=== PATIENT | male | born 1995 | race Caucasian/White ===

== ENCOUNTER 2023-01-21 18:27 | Emergency (ER) | payer SELFPAY ==
[2023-01-21] VITALS (10 sets, daily range): BP systolic 118–168; BP diastolic 78–103; PULSE 70–85; RESP 18; TEMP 36.8; O2SAT 95–100; BMI 37.3
--- NOTE | 2023-01-21 18:55 | XR_ITS ---
The [address] [address] Patient Name: ABBI CULP MRN: [id number] date: 1995 Sex: M Assigned Patient Location: ER Current Patient Location: Accession/Order Number: [id number] Exam Date: 01/21/2023 19:47 Report Date: 01/21/2023 20:31 At the request of: MARIA LUISA CHEW Procedure: XR acute abdomen series EXAM: XR acute abdomen series TECHNIQUE: PA view chest. AP supine and upright views of the abdomen. HISTORY: Abdominal pain, vomiting COMPARISON: None. FINDINGS: The heart and mediastinum are unremarkable. Lung jaime are clear. There is no free intraperitoneal air. There is no bowel obstruction. No abnormal unexpected abdominal calcifications. Osseous structures are intact. XR/XR acute abdomen series IMPRESSION: No acute abdominal pathology. No acute pulmonary consolidation Electronically authenticated by: MATT SMITH Date: 01/21/2023 20:31
--- NOTE | 2023-01-21 18:56 | ED_ITS ---
HPI - Abdominal Pain General Chief Complaint: Abdominal Pain Stated Complaint: vomiting Time Seen by Provider: 01/21/23 18:46 Source: patient Mode of arrival: walk-in Limitations: no limitations History of Present Illness HPI narrative: Patient is a 27-year-old male who presents to the emergency department for the evaluation of multiple episodes of vomiting and an episode of hematemesis today. Patient states for the last 2 days he has had nausea and vomiting associated with upper abdominal pain. 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 He has not had any fevers, upper respiratory symptoms. No medications taken prior to arrival. No sick contacts in the home. Related Data Previous Rx's Medication Instructions Recorded ondansetron 4 mg disintegrating 4 mg PO Q6H PRN nausea and 01/21/23 tablet vomiting #12 tabs pantoprazole 40 mg tablet,delayed 40 mg PO DAILY #7 tabs 01/21/23 release (Protonix) sucralfate 1 gram tablet (Carafate) 1 g PO Q6H PRN abdominal pain #12 01/21/23 tabs Allergies Allergy/AdvReac Type Severity Reaction Status Date / Time No Known Drug Allergies Allergy Verified 01/21/23 18:39 Review of Systems ROS Constitutional Denies: fever or chills Ears, nose, mouth, and throat Denies: throat pain or nasal congestion Cardiovascular Denies: chest pain Respiratory Denies: shortness of breath or cough Gastrointestinal Reports: abdominal pain, nausea and vomiting; Denies: diarrhea Genitourinary Denies: painful urination Musculoskeletal Denies: back pain Integumentary/Breast Denies: rash Neurological Denies: headache PFSH PFSH Social History Smoking status: Former smoker Exam Narrative Exam Narrative: Gen.: Awake, alert, in no distress Head: Normocephalic, atraumatic ENT: Moist mucous membranes Respiratory: No respiratory distress, lungs clear bilaterally Cardio: Regular rate and rhythm Gastrointestinal: Abdomen is soft, nondistended and diffusely tender to palpation across the upper abdomen; well-healed surgical scar to the right upper abdomen Extremities: Moves extremities equally Psych: Normal mood and affect Neuro: No focal neuro deficit Skin: Warm, dry, intact Constitutional Vital Signs, click to edit/add: Last Vital Signs Temp 98.2 F 01/21/23 18:40 Pulse 70 01/21/23 20:24 Resp 18 01/21/23 18:40 BP 133/89 01/21/23 20:21 Pulse Ox 100 01/21/23 20:24 O2 Del Method Room Air 01/21/23 18:40 Course Vital Signs Vital signs: Vital Signs Temperature 98.2 F 01/21/23 18:40 Pulse Rate 85 01/21/23 18:40 Respiratory Rate 18 01/21/23 18:40 Blood Pressure 168/103 H 01/21/23 18:40 Pulse Oximetry 97 01/21/23 18:40 Oxygen Delivery Method Room Air 01/21/23 18:40 Temperature 98.2 F 01/21/23 18:40 Pulse Rate 70 01/21/23 20:24 Respiratory Rate 18 01/21/23 18:40 Blood Pressure 133/89 01/21/23 20:21 Pulse Oximetry 100 01/21/23 20:24 Oxygen Delivery Method Room Air 01/21/23 18:40 MDM - Abdominal Pain MDM Narrative Medical decision making narrative: Patient with normal lab studies, stable hemoglobin, no significant leukocytosis. No evidence of liver, gallbladder or pancreas abnormalities. Abdominal x-rays with no evidence of perforation or obstruction. Patient treated with IV fluids, Zofran, Protonix. He will be treated for gastritis with Zofran and Protonix for home. Follow-up with PCP and return to the ER if symptoms change or worsen. Vital signs within normal limits and abdomen is soft and benign on recheck at discharge. Medical Records Attestation: I reviewed the patient's medical records. Lab Data Attestation: I reviewed the patient's lab results. Labs: Lab Results 01/21/23 Range/Units 19:00 WBC 9.3 (4.0-11.0) 10^3/uL RBC 4.93 (4.70-6.10) 10^6/uL Hgb 15.4 (14.0-18.0) g/dL Hct 45.6 (42.0-54.0) % MCV 92.5 (80.0-94.0) fL MCH 31.2 (25.9-34.0) pg MCHC 33.8 (29.9-35.2) g/dL RDW 13.0 (11.0-15.0) % Plt Count 279 (150-450) 10^3/uL MPV 11.1 (9.5-13.5) fL Neut % (Auto) 60.7 (43.0-75.0) % Lymph % (Auto) 23.1 (20.5-60.0) % [place] % (Auto) 15.3 H (1.7-12.0) % Eos % (Auto) 0.2 L (0.9-7.0) % Baso % (Auto) 0.4 (0.2-2.0) % Neut # (Auto) 5.7 (1.4-6.5) 10^3/uL Lymph # (Auto) 2.2 (1.2-3.8) 10^3/uL [place] # (Auto) 1.4 H (0.3-0.8) 10^3/uL Eos # (Auto) 0.0 (0.0-0.7) 10^3/uL Baso # (Auto) 0.0 (0.0-0.1) 10^3/uL Abs Immat Gran (auto) 0.03 (0.00-0.03) 10^3/uL Imm/Tot Granulo (auto) 0.3 (0.0-0.5) % Sodium 137 (136-145) mmol/L Potassium 3.7 (3.5-5.1) mmol/L Chloride 101 (98-107) mmol/L Carbon Dioxide 24.8 (21.0-32.0) mmol/L Anion Gap 14.9 BUN 15.0 (7.0-18.0) mg/dL Creatinine 0.99 (0.70-1.30) mg/dL Est GFR ( Amer) >60 (>=60) Est GFR (Non-Af Amer) >60 (>=60) BUN/Creatinine Ratio 15.2 Glucose 88 (74-106) mg/dL Lactate 1.4 (0.4-2.0) mmol/L Calcium 9.5 (8.5-10.1) mg/dL Total Bilirubin 0.9 (0.2-1.0) mg/dL AST 31 (15-37) U/L ALT 61 (16-63) U/L Alkaline Phosphatase 53 (46-116) U/L Total Protein 7.9 (6.4-8.2) g/dL Albumin 4.5 (3.4-5.0) g/dL Globulin 3.4 g/dL Albumin/Globulin Ratio 1.3 Lipase 29.0 (16.0-77.0) U/L Imaging Data Abdominal x-ray: Attestation: I personally reviewed and interpreted this imaging study as follows: My impression: NAD Discharge Plan Discharge Chief Complaint: Abdominal Pain Clinical Impression: Hematemesis, Nausea & vomiting, Abdominal pain Patient Disposition: Home, Self-Care Time of Disposition Decision: 20:10 Condition: Good Prescriptions / Home Meds: New sucralfate [Carafate] 1 gram tablet 1 g PO Q6H PRN (Reason: abdominal pain) Qty: 12 0RF pantoprazole [Protonix] 40 mg tablet,delayed release (DR/EC) 40 mg PO DAILY Qty: 7 0RF ondansetron 4 mg tablet,disintegrating 4 mg PO Q6H PRN (Reason: nausea and vomiting) Qty: 12 0RF Instructions: Acute Nausea and Vomiting (ED), Acute Abdominal Pain (ED) Stand Alone Forms: Portal Instructions Referrals: Physician,Non-Staff, MD [Primary Care Provider] - 1 week Discharge Date/Time: 01/21/23 20:26
[2023-01-21 19:12] LABS: Basophils Percent Auto 0.4 % (0.2-2.0); Eosinophils Percent Auto 0.2 % (0.9-7.0); Hematocrit 45.6 % (42.0-54.0); Hemoglobin 15.4 g/dL (14.0-18.0); Immature Granulocytes Abs Auto 0.03 10^3/uL (0.00-0.03); Immature Granulocytes Pct Auto 0.3 % (0.0-0.5); Lymphocytes Absolute Auto 2.2 10^3/uL (1.2-3.8); Lymphocytes Percent Auto 23.1 % (20.5-60.0); Mean Corpuscular HGB Conc 33.8 g/dL (29.9-35.2); Mean Corpuscular Hemoglobin 31.2 pg (25.9-34.0); Mean Corpuscular Volume 92.5 fL (80.0-94.0); Mean Platelet Volume 11.1 fL (9.5-13.5); Monocytes Absolute Auto 1.4 10^3/uL (0.3-0.8); Monocytes Percent Auto 15.3 % (1.7-12.0); Neutrophils Absolute Auto 5.7 10^3/uL (1.4-6.5); Neutrophils Percent Auto 60.7 % (43.0-75.0); Platelet Count 279 10^3/uL (150-450); Red Blood Count 4.93 10^6/uL (4.70-6.10); White Blood Count 9.3 10^3/uL (4.0-11.0)
[2023-01-21] MEDS: 0.9 % SODIUM CHLORIDE 1,000 ML 999 ML IV (19:13)
[2023-01-21] MEDS: ONDANSETRON PF 4 MG/2 ML VIAL IV (19:13)
[2023-01-21] MEDS: PANTOPRAZOLE SODIUM 40 MG VIAL IV (19:13)
[2023-01-21 19:26] LABS: Alanine Aminotransferase 61 U/L (16-63); Albumin Globulin Ratio 1.3; Albumin Level 4.5 g/dL (3.4-5.0); Alkaline Phosphatase 53 U/L (46-116); Anion Gap 14.9; Aspartate Amino Transferase 31 U/L (15-37); BUN Creatinine Ratio 15.2; Bilirubin Total 0.9 mg/dL (0.2-1.0); Calcium 9.5 mg/dL (8.5-10.1); Carbon Dioxide 24.8 mmol/L (21.0-32.0); Chloride 101 mmol/L (98-107); Estimated GFR (African America >60 (>=60); Estimated GFR (Non-African Ame >60 (>=60); Globulin 3.4 g/dL; Glucose 88 mg/dL (74-106); Potassium 3.7 mmol/L (3.5-5.1); Sodium 137 mmol/L (136-145); Total Protein 7.9 g/dL (6.4-8.2)
[2023-01-21 19:29] LABS: Lactate/Lactic Acid 1.4 mmol/L (0.4-2.0)
== END 2023-01-21 20:26 | disposition home or self-care (01) ==
PROVIDERS: Physician Assistant; Emergency Provider Internal Medicine
DX: K92.0 Hematemesis (principal); R10.10 Upper abdominal pain, unspecified; Z87.891 Personal history of nicotine dependence
CPT/HCPCS: 36415; 74022; 80053; 83605; 83690; 85025; 96361; 96374; 96375; 99284